=== PATIENT | female | born 1935 | race Caucasian/White ===

== ENCOUNTER 2017-07-10 15:15 | Observation (INO) ==
--- NOTE | 2017-07-10 16:00 | Emergency Department Note ---
Disposition Clinical Impression: Sacral fracture, closed, Fall (on) (from) other stairs and steps, initial encounter Disposition: Home, Self-Care Condition: Fair Referrals: Tonie Moreland MD [Primary Care Provider] - Forms: ED Satisfaction Letter Time of Disposition: 18:30 (sheeba hawkins) Fall HPI - General Chief Complaint: ED Fall Stated Complaint: fall with multiple c/o pain Time Seen by Provider: 07/10/17 15:17 Source: patient, EMS Mode of arrival: ambulatory Limitations: no limitations Nursing Notes Reviewed: Yes Vital Signs Reviewed: Yes - History of Present Illness HPI Narrative: Centripetal last step at the house falling and striking hitting her hip on the left-hand side involvement Robbin states that she was not knocked unconscious she says that she thinks she blacked out when she hit the ground she denies that chest pain chest pressure palpitations unable to bear weight patient states that she is having severe hip and back pain she is also having left knee pain she has fever chills cough or congestion she denies numbness tingling weakness with the exception of the left hip and back region shies chest pain chest pressure palpitations she is able to tell me everything this happened today she is able to tell me that she fell down the steps and has no break in her recollection of what occurred today Pt Subjective Complaint: fall Onset (ago): Just 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 Denies: headache, neck pain, numbness, chest pain, shortness of breath, abdominal pain, hematuria, lightheaded, vertigo, confusion - Related Data Home Medications Medication Instructions Recorded Confirmed ALPRAZolam [Xanax 1 MG Tablet] 1 mg PO QID PRN 05/09/16 07/10/17 Atorvastatin [Lipitor] 10 mg PO HS 05/09/16 07/10/17 Black Cohosh Root [Black Cohosh] 540 mg PO DAILY 05/09/16 07/10/17 Calcium Crb,Cit/D3/Min34/Kobe 1 each PO DAILY 05/09/16 07/10/17 [Citracal + Bone Density Tablet] Duloxetine HCl 60 mg PO BID 05/09/16 07/10/17 Multivitamin [Multi-Day Vitamins] 1 each PO DAILY 05/09/16 07/10/17 buPROPion HCl [Bupropion HCl Sr] 100 mg PO DAILY 05/09/16 07/10/17 Albuterol Sulfate [Albuterol 2 puff IH Q6H PRN 07/10/17 07/10/17 Inhaler] Allergies Allergy/AdvReac Type Severity Reaction Status Date / Time KAILEY Inhibitors Allergy See Verified 05/10/17 12:06 Comments aspirin Allergy See Verified 05/10/17 12:06 Comments iodine Allergy See Verified 05/10/17 12:06 Comments meperidine [From Demerol] Allergy See Verified 05/10/17 12:06 Comments NSAIDS (Non-Steroidal Allergy See Verified 05/10/17 12:06 Anti-Inflamma Comments Sulfa (Sulfonamide Allergy Hives Verified 05/10/17 12:06 Antibiotics) tramadol Allergy See Verified 05/10/17 12:06 Comments contrast media Allergy See Uncoded 05/10/17 12:06 Comments All systems ED: reviewed and negative except as stated. Review of Systems: As Per HPI Constitutional: Reports: weakness. Denies: fever, chills Eyes: Denies: eye pain, eye discharge ENT ED: Denies: ear pain Cardiovascular: Denies: chest pain, palpitations Respiratory: Denies: cough, dyspnea Gastrointestinal: Denies: abdominal pain, nausea, vomiting Genitourinary: Denies: urgency, dysuria, frequency Musculoskeletal: Reports: back pain. Denies: neck pain Integumentary: Denies: rash, abrasion Neurological: Reports: weakness. 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 - Social History Smoking Status: Never smoker Alcohol use: Reports: none Drug use: Reports: none, other Physical Exam - General Limitations: no limitations General appearance: alert, in no apparent distress, anxious - Head Head exam: atraumatic, normocephalic, normal inspection - Eye Eye exam: Present: normal appearance, PERRL - ENT ENT exam: normal exam, normal oropharynx, mucous membranes moist, normal external ear exam - Neck Neck exam: Present: normal inspection, full ROM, trachea midline - Chest Chest inspection: Present: normal inspection, symmetric chest wall rise - Respiratory Respiratory exam: Present: normal lung sounds bilaterally - Cardiovascular Cardiovascular exam: Present: regular rate, normal rhythm, normal heart sounds - Abdominal Exam Abdominal exam: Present: soft, Non-Tender, normal bowel sounds. Absent: mass, pulsatile mass - Expanded Upper Extremity Exam Shoulder exam: Present: normal inspection, full ROM Arm exam: Present: normal inspection, full ROM Elbow exam: Present: normal inspection, full ROM Forearm/Wrist exam: Present: normal inspection, full ROM Hand exam: Present: normal inspection, full ROM Neurosensory exam: Normal: radial nerve, ulnar nerve, median nerve Vascular exam: Normal: capillary refill, radial pulse, ulnar pulse - Expanded Lower Extremity Exam Hip/Pelvis exam: Present: normal inspection, full ROM, tenderness, pelvis stable Upper leg exam: Present: normal inspection, full ROM Knee exam: Present: normal inspection, full ROM Lower leg exam: Present: normal inspection, full ROM Ankle exam: Present: normal inspection, full ROM Foot/toe exam: Present: normal inspection, full ROM Neurovascular/Tendon exam: Present: normal capillary refill, normal fine/light touch Gait: observed and normal - Back Exam Back exam: Present: normal inspection, full ROM. Absent: muscle spasm - Neurological Exam Neurological exam: Present: alert, oriented X3, CN II-XII intact - Psychiatric Psychiatric exam: Present: normal affect, normal mood - Skin Skin exam: Present: warm, dry, intact, normal color Course Course Narrative: She was seen and examined she was immediately obtained off the backboard for patient's comfort dictation x-ray for films pain obtained showing a sacrum fracture patient was then admitted transfer services Dr. Russo - Reevaluation(s) Reevaluation #1: Patient is unable to bear weight and is having persistent pain when trying to move about in the bed as a result discussed with Dr. Russo for admission transferred to [facility] to have physical therapy occupational therapy evaluate and assist to determine if she needs any assisting Ayes at home but also did teach her how to ambulate with the fracture is necessary may need respite or swelling bed for further management as an orthopedic physician's consultation on Thursday for her arm Vital Signs Temperature 99.1 F 07/10/17 15:19 Pulse Rate 96 07/10/17 15:19 Respiratory Rate 18 07/10/17 15:19 Blood Pressure 166/86 07/10/17 15:19 O2 Sat by Pulse Oximetry 97 07/10/17 15:19 Temperature 99.1 F 07/10/17 15:19 Pulse Rate 84 07/10/17 17:20 Respiratory Rate 17 07/10/17 17:20 Blood Pressure 144/78 07/10/17 17:20 O2 Sat by Pulse Oximetry 97 07/10/17 17:20 Oxygen Delivery Oxygen Delivery Room Air Fall - MDM Narrative Medical decision making narrative: After dislocation subluxation knee - Differential Diagnosis Likely: traumatic injury - Medical Records Medical records reviewed: Yes I reviewed the patient's medical records. - Radiology Data Radiology results reviewed: Yes I reviewed the patient's radiology results. ITS Impressions Cervical Spine CT 07/10/17 15:59 IMPRESSION: No acute abnormality of the cervical spine. D/ / Richard Last MD / Richard Last MD Interpreting Provider: Richard Last MD Head CT 07/10/17 15:59 IMPRESSION: No acute traumatic intracranial abnormality. Underlying atrophy with periventricular and scattered frontal parietal white matter disease, likely due to small-vessel ischemic change. D/ / Michael Nieves MD / Michael Nieves MD Interpreting Provider: Michael Nieves MD Lumbar Spine CT 07/10/17 15:59 IMPRESSION: 1. No acute osseous abnormality of the lumbar spine. 2. Degenerative grade 1 anterolisthesis of L5 on S1 secondary to facet hypertrophy with resultant severe bilateral L5 neural foraminal narrowing. 3. Moderate L2-3 and L3-4 and severe L4-5 spinal canal stenosis. D/ / Wilfred Arndt MD / Wilfrde Arndt MD Interpreting Provider: Wilfred Arndt MD Pelvis CT 07/10/17 15:59 IMPRESSION: Left sacral fracture. D/ / Jessica Garcia Cha, MD / Jessica Garcia Cha, MD Interpreting Provider: Jessica Garcia Cha, MD Knee X-Ray 07/10/17 16:25 IMPRESSION: No acute abnormality is identified. D/ / Nadeem Traylor MD / Nadeem Traylor MD Interpreting Provider: Nadeem Traylor MD Critical Care Time Critical Care Time: No
[2017-07-10] MEDS ORDERED: ALPRAZolam 1 MG TABLET PO PRN (19:19)
[2017-07-10] MEDS ORDERED: Naloxone 0.4 MG/ML INJ IVP PRN (19:19)
[2017-07-10] MEDS ORDERED: *HR* HYDROcodone/Acet 5/325 mg TABLET PO PRN (19:19)
[2017-07-11] MEDS ORDERED: BuPROPion SR (12 HR) 100 MG TABLET PO SCH (09:00)
[2017-07-11] MEDS ORDERED: CITRACAL PO SCH (09:00)
[2017-07-11] MEDS ORDERED: BLACK COHOSH 540 MG PO SCH (09:00)
[2017-07-11] MEDS ORDERED: BONE DENSITY PO SCH (09:00)
[2017-07-11] MEDS ORDERED: Multivit/Ca/Min/Fe/FA 1 TAB TABLET PO SCH (09:00)
[2017-07-11 10:24] VITALS: BP 111/66
[2017-07-11] MEDS: ALPRAZolam 1 MG TABLET PO SCH ×2 (10:25→13:18)
[2017-07-11] MEDS ORDERED: BUPROPION 100 MG PO SCH (13:15)
--- NOTE | 2017-07-11 14:27 | Internal Med History&Physical ---
Date of Encounter: 07/11/17 Time of Encounter: 13:55 Assessment and Plan (1) Sacral fracture, closed Current visit: Yes Status: Acute She was admitted to [facility] in observation status. Physical therapy consult was ordered. Further workup will be done as needed. Qualifiers: Encounter type: initial encounter Zone of sacrum fracture: unspecified portion of sacrum Qualified Code(s): S32.10XA - Unspecified fracture of sacrum , initial encounter for closed fracture Internal Medicine - H&P: HPI Chief complaint: Fall Admitted From: Home Plans for Post Hospital Care: Home History of present illness: Ms. Desai is a 82 year old female who states she was leaving the [employer] shop the day of admission and fell while walking down a ramp. She reports her shoe hung in some of the boards on the ramp causing her to lose her balance. The squad was called and she was brought to emergency room. Evaluation showed a sacral fracture new since October 2006 CT scan. She was admitted to [facility] for pain control and further evaluation. She states she is in no pain at this time. She reports she has been able to ambulate in the room and the hospital hallway without difficulty. He states she had mild abrasions to her right and left forearms. There is very minimal discomfort associated with them at this time. Musculoskeletal history is significant for DJD but no known gout or other bone joint or muscle disorders. Past Med Surg Social Fam HX - Past Medical History Medical history: arthritis, GERD, hyperlipidemia, osteoporosis, renal disease Psychiatric history: anxiety, depression - Past Surgical History Surgical History: appendectomy, herniorrhaphy, hip replacement, hysterectomy, knee replacement - Social History Smoking Status: Never smoker Smokeless Tobacco Status: No Alcohol use: none Drug use: none, other - Family History Mother Living Status: Age at : 88 Cause of : pancreatic cancer Hx Family Cancer: Yes Father Age: 67 Living Status: Hx Family Respiratory Disorders: Yes (black lung) Hx Family Cancer: Yes (kidney cancer) Internal Medicine - H&P: Meds ALPRAZolam [Xanax 1 MG Tablet] 1 mg PO QID 05/09/16 [History] Atorvastatin [Lipitor] 10 mg PO HS 05/09/16 [History] Black Cohosh Root [Black Cohosh] 540 mg PO DAILY 05/09/16 [History] Calcium Crb,Cit/D3/Min34/Kobe [Citracal + Bone Density Tablet] 1 each PO DAILY 05/09/16 [History] Duloxetine HCl 60 mg PO BID 05/09/16 [History] Multivitamin [Multi-Day Vitamins] 1 each PO DAILY 05/09/16 [History] buPROPion HCl [Bupropion HCl Sr] 100 mg PO DAILY 05/09/16 [History] Albuterol Sulfate [Albuterol Inhaler] 2 puff IH Q6H PRN 07/10/17 [History] 3 Allergy/AdvReac Type Severity Reaction Status Date / Time KAILEY Inhibitors Allergy See Verified 05/10/17 12:06 Comments aspirin Allergy See Verified 05/10/17 12:06 Comments iodine Allergy See Verified 05/10/17 12:06 Comments meperidine [From Demerol] Allergy See Verified 05/10/17 12:06 Comments NSAIDS (Non-Steroidal Allergy See Verified 05/10/17 12:06 Anti-Inflamma Comments Sulfa (Sulfonamide Allergy Hives Verified 05/10/17 12:06 Antibiotics) tramadol Allergy See Verified 05/10/17 12:06 Comments contrast media Allergy See Uncoded 05/10/17 12:06 Comments All Systems PM: A 10-system review of systems was performed and is negative for pertinent findings except as documented above in the HPI. Review of systems: Gen.: She states her weight has been stable past few months Cardiovascular: She denies CT hypertension heart failure angina DVT or pulmonary embolus Respiratory: She is a lifelong nonsmoker and has no known chronic lung disease GI: She denies disorders of her liver gallbladder or exocrine pancreas : She denies hematuria dysuria or kidney stones Neurologic: She denies large distribution strokes or seizures. Endocrine: She has hyperlipidemia but denies diabetes or thyroid disease Hematology/oncology: She denies blood disorders cancers or anemia Psychiatric: She has anxiety and depression but denies other mental health issues Musk skeletal: She has DJD but denies gout or other bone joint or muscle disorders. - Constitutional Vitals: Temp Pulse Resp BP Pulse Ox 98.5 F 90 17 111/66 96 07/11/17 10:24 07/11/17 11:50 07/11/17 11:50 07/11/17 11:50 07/11/17 11:50 Exam: Neuro: She is a well-developed well-nourished female who appears in no acute distress at present time. HEENT: Head is atraumatic and normocephalic. Eyes: EOMI. There is no scleral icterus. Mouth: Mucosa is moist. Neck: Supple and nontender. There is no thyromegaly or adenopathy noted. Heart: Regular without murmurs gallops or ectopics Lungs: No wheezes or crackles are heard. Abdomen: Soft and nontender. No masses or guarding noted. Extremities: There is no cyanosis edema or clubbing noted. Dorsalis pedis and posttibial pulses are trace palpable bilaterally. Her feet are warm to touch. There is no pain on internal or external rotation of her hips or flexion or extension of her knees. Neurologic: Mental status: She is talkative and a good historian. Cranial nerves: Smile is symmetric. Forehead wrinkles bilaterally. Tongue protrudes midline. EOMI. Motor: There is no pronator drift. Cerebellar: Finger to nose is intact bilaterally. Skin: Warm and dry
--- NOTE | 2017-07-11 14:37 | Discharge Summary ---
Date of Encounter: 07/11/17 Time of Encounter: 13:55 - Discharge Diagnosis (1) Sacral fracture, closed Priority: Primary Status: Acute Qualifiers: Encounter type: initial encounter Zone of sacrum fracture: unspecified portion of sacrum Qualified Code(s): S32.10XA - Unspecified fracture of sacrum , initial encounter for closed fracture - Discharge Medications Home Medications: ALPRAZolam [Xanax 1 MG Tablet] 1 mg PO QID 05/09/16 [History] Atorvastatin [Lipitor] 10 mg PO HS 05/09/16 [History] Black Cohosh Root [Black Cohosh] 540 mg PO DAILY 05/09/16 [History] Calcium Crb,Cit/D3/Min34/Kobe [Citracal + Bone Density Tablet] 1 each PO DAILY 05/09/16 [History] Duloxetine HCl 60 mg PO BID 05/09/16 [History] Multivitamin [Multi-Day Vitamins] 1 each PO DAILY 05/09/16 [History] buPROPion HCl [Bupropion HCl Sr] 100 mg PO DAILY 05/09/16 [History] Albuterol Sulfate [Albuterol Inhaler] 2 puff IH Q6H PRN 07/10/17 [History] Allergies/Adverse Reactions: 3 Allergy/AdvReac Type Severity Reaction Status Date / Time KAILEY Inhibitors Allergy See Verified 05/10/17 12:06 Comments aspirin Allergy See Verified 05/10/17 12:06 Comments iodine Allergy See Verified 05/10/17 12:06 Comments meperidine [From Demerol] Allergy See Verified 05/10/17 12:06 Comments NSAIDS (Non-Steroidal Allergy See Verified 05/10/17 12:06 Anti-Inflamma Comments Sulfa (Sulfonamide Allergy Hives Verified 05/10/17 12:06 Antibiotics) tramadol Allergy See Verified 05/10/17 12:06 Comments contrast media Allergy See Uncoded 05/10/17 12:06 Comments Date of admission: 07/10/17 18:45 Primary care physician: Tonie Moreland, - Patient Status Disposition: Home, Self-Care Condition: Fair Functional capacity at discharge: independent ambulation Overall status at discharge: patient is progressing back to baseline - Discharge Instructions Follow Up With: Tonie Moreland MD [Primary Care Provider] - 1 week - Diet and Activity Activity: resume usual activities as tolerated Diet: advance to your usual diet Hospital course: Ms. Desai is a 82 year old female who states she was leaving the [employer] shop the day of admission and fell while walking down a ramp. She reports her shoe hung in some of the boards on the ramp causing her to lose her balance. The squad was called and she was brought to emergency room. Evaluation showed a sacral fracture new since October 2006 CT scan. She was admitted to [facility] for pain control and further evaluation. Initial orders were written by the emergency room physician. I saw her on July 11 and performed the history physical and discharge. She had physical therapy evaluation done. When I saw her she reported no significant pain present. She reports she been able to ambulate satisfactorily and did not wish to stay in the hospital any longer. She felt Tylenol would be adequate for pain control at home. She will be discharged home and follow with her PCP Dr. Moreland within 1 week. - Time Spent with Patient Total time spent providing and/or coordinating discharge services: - Constitutional Vitals: Temp Pulse Resp BP Pulse Ox 98.5 F 90 17 111/66 96 07/11/17 10:24 07/11/17 11:50 07/11/17 11:50 07/11/17 11:50 07/11/17 11:50
[2017-07-11] MEDS ORDERED: FLUARIX QUAD 2017-18 36MOS UP/PF 0.5 ML SYRINGE IM ONE (15:22)
== END 2017-07-11 15:47 | disposition home or self-care (01) ==
LOC: EMEROOPIK 15:15 → INPPIK 15:15
PROVIDERS: ADMIT Internal Medicine; ATTEND Internal Medicine